=== PATIENT | female | born 1990 ===

== ENCOUNTER 2018-01-29 09:48 | Emergency (ER) | payer OTHER ==
[2018-01-29 10:03] VITALS: BMI 30.2
[2018-01-29] MEDS ORDERED: Sodium Chloride 0.9% 1,000 ML IV STA (11:03)
[2018-01-29] MEDS ORDERED: Famotidine 20mg/50ml Premix IVPB STA (11:03)
--- NOTE | 2018-01-29 11:16 | ED PDOC ---
HPI: Abdomen Time Seen by Provider: 01/29/18 10:44 Chief Complaint (Nursing): Abdominal Pain Chief Complaint (Provider): Abdominal Pain History Per: Patient, Physical Therapist ([id number]) History/Exam Limitations: no limitations Onset/Duration Of Symptoms: Days (x3) Outside of [place] travel?: No Current Symptoms Are (Timing): Still Present Pain Scale Rating Of: 8 Location Of Pain/Discomfort: Suprapubic (mid lower abdomen and shoots to both sides) Associated Symptoms: denies: Fever, Chills, Nausea, Vomiting, Diarrhea Additional Complaint(s): 27 year old female, with a past medical history of UTI, presented to the ED for evaluation of suprapubic pain with onset of 3 days. Patient reports the pain has been worsening this morning and is unrelieved by tylenol which he took at 03 :00. Pain was described as intermittent and pulsating and is 8/10 when it comes. Patient indicates pain begins in the mid lower abd and shoots to both sides (L>R). Of note, patient was diagnosed with ovarian cyst last year and is unsure if that is contributing to her symptoms. Patient states her current symptoms are not consistent with her UTIs in the past. She denies chills, nausea, vomiting, diarrhea, recent travel, cough, SOB, urinary symptoms, and flank pain. Patient's LMP was 01/15/18. PMD: [facility] Past Medical History Reviewed: Historical Data, Nursing Documentation, Vital Signs Vital Signs: Last Vital Signs Temp 98.3 F 01/29/18 14:59 Pulse 77 01/29/18 14:59 Resp 16 01/29/18 14:59 BP 123/74 01/29/18 14:59 Pulse Ox 99 01/29/18 15:00 - Medical History PMH: Mitral Valve Prolapse (surgery in 2014) - Surgical History Other surgeries: Valve replacement - Family History Family History: States: Unknown Family Hx - Social History Current smoker - smoking cessation education provided: No Alcohol: Occasional Drugs: Denies - Home Medications Home Medications: Ambulatory Orders Medication Instructions Recorded Naproxen 500 mg PO BID #20 tab 01/29/18 - Allergies Allergies/Adverse Reactions: Allergies Allergy/AdvReac Type Severity Reaction Status Date / Time No Known Allergies Allergy Verified 01/29/18 10:53 Review of Systems ROS Statement: Except As Marked, All Systems Reviewed And Found Negative Constitutional: Negative for: Fever, Chills Respiratory: Negative for: Shortness of Breath Gastrointestinal: Positive for: Abdominal Pain (suprapubic pain). Negative for : Nausea, Vomiting, Diarrhea Genitourinary Female: Negative for: Dysuria, Hematuria Physical Exam - Reviewed Nursing Documentation Reviewed: Yes Vital Signs Reviewed: Yes - Physical Exam Comments: GENERAL APPEARANCE: Patient is awake, alert, oriented x 3, resting comfortably, no distress. SKIN: Warm, dry; (-) cyanosis. EYES: (-) conjunctival pallor, (-) scleral icterus. ENMT: Mucous membranes [ ] moist. NECK: (-) tenderness, (-) stiffness, (-) lymphadenopathy. CHEST AND RESPIRATORY: (-) rales, (-) rhonchi, (-) wheezes; breath sounds equal bilaterally. HEART AND CARDIOVASCULAR: (-) irregularity; (-) murmur, (-) gallop. ABDOMEN AND GI: (-) distention. Bowel sounds active; (+) tenderness in RUQ, LUQ, suprapubic. (-) guarding, (-) rebound, (-) palpable masses, (-) CVA tenderness. EXTREMITIES: (-) deformity, (-) edema, (+) distal pulses. NEURO AND PSYCH: Mental status as above; (-) focal findings. - Laboratory Results Result Diagrams: 01/29/18 11:40 01/29/18 11:40 Urine POC: Negative Urine dip results: Positive for: Leukocyte Esterase (small), Blood (trace). Negative for: Nitrate, Ketones, Glucose, Bilirubin, Protein - ECG O2 Sat by Pulse Oximetry: 99 (RA) Pulse Ox Interpretation: Normal Medical Decision Making Medical Decision Making: Initial Impression: abdominal pain Initial Plan: CMP Lipase ED urine CBC Sodium chloride 1000mL IV Famotidine 20mg IV Toradol 30mg IV Urine culture Urinalysis US transvaginal 12:25 Labs reviewed and grossly unremarkable. Urine with small leukocytes. Patient advised culture sent. Patient with persistent pain on re-evaluation. Transvaginal U/S ordered to r/o ovarian pathology. 1320 Patient returned from U/S without incident. Patient reports improvement of presenting symptoms. Awaiting U/S report. 1445 HISTORY: h/o ovarian cysts, lower abdominal pain COMPARISON: None available. TECHNIQUE: Transvaginal pelvic ultrasound was performed. FINDINGS: UTERUS: Measures 7.2 x 3.4 x 4.0 cm. Anteverted, normal in size and appearance. No fibroid or other mass lesion seen. ENDOMETRIUM: Measures 2.0 mm in diameter. There is a tiny echogenic focus in the anterior inferior endometrium which may represent non shadowing calcification. Otherwise the central endometrial echo complex is grossly normal in appearance. CERVIX: No cervical abnormality identified. RIGHT OVARY: Measures 1.9 x 1.7 x 1.6 cm. No solid mass. Normal flow. LEFT OVARY: Enlarged and measures 5.0 x 4.3 x 4.8 cm. No solid mass. Normal flow. There is a 4.5 x 4.1 x 4.1 cm complicated septated cyst. FREE FLUID: No significant free fluid noted. OTHER FINDINGS: None. IMPRESSION: 0.5 x 4.1 x 4.1 cm complicated septated cyst in the left ovary. No evidence for torsion. Follow-up ultrasound in 3-6 month interval is recommended to assess stability/ resolution. On re-evaluation, patient reports improvement of symptoms and denies any abdominal pain at present. On exam, patient remains AAOx3, in no acute distress. Lungs clear to auscultation, cardiac RRR, abdomen soft, non-tender, repeat neuro exam shows no focal findings. VSS, stable for discharge. Lab/Diagnostic results d/w the patient in great detail. Diagnosis of ovarian cyst, abdominal pain d/w the patient. Based on history, exam and diagnostic results, plan will be for outpatient follow up. Patient instructed to follow-up with pmd / referral provided / the clinic in 1- 2 days without fail. Advised to take medication as prescribed. Return to the emergency room at any time for any new or worsening symptoms. Patient states she fully agrees with and understands discharge instructions. States that she agrees with the plan and disposition. Verbalized and repeated discharge instructions and plan. I have given the patient opportunity to ask any additional questions. - Scribe Attestation: Documented by Jigar Villarreal acting as a scribe for Marcela ENGLISH. Provider Scribe Attestation: All medical record entries made by the Scribe were at my direction and personally dictated by me. I have reviewed the chart and agree that the record accurately reflects my personal performance of the history, physical exam, medical decision making, and the department course for this patient. I have also personally directed, reviewed, and agree with the discharge instructions and disposition. Disposition - Clinical Impression Clinical Impression: Ovarian cyst, Abdominal pain - Patient ED Disposition Is Patient to be Admitted: No Counseled Patient/Family Regarding: Studies Performed, Diagnosis, Need For Followup, Rx Given - Disposition [facility]errals: 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 RETURN TO ED WITH ANY NEW OR WORSENING SYMPTOMS. Prescriptions: Naproxen 500 mg PO BID #20 tab Instructions: Ovarian Cysts, Acute Abdomen (Belly Pain), Adult (DC) Forms: [employer] (Welsh) Print Language: OCCITAN - POA Present On Arrival: None Results - Lab Results Lab Results: 01/29/18 01/29/18 01/29/18 11:40 11:40 11:40 WBC 4.1 L RBC 4.47 Hgb 13.5 Hct 39.7 MCV 88.9 MCH 30.3 MCHC 34.1 RDW 13.0 Plt Count 146 MPV 10.6 Neut % (Auto) 45.2 L Lymph % (Auto) 39.2 Menard % (Auto) 10.1 H Eos % (Auto) 4.5 H Baso % (Auto) 1.0 Neut # (Auto) 1.9 Lymph # (Auto) 1.6 Menard # (Auto) 0.4 Eos # (Auto) 0.2 Baso # (Auto) 0.0 Sodium 142 Potassium 4.3 Chloride 105 Carbon Dioxide 22 Anion Gap 19 BUN 13 Creatinine 0.6 L Est GFR ( Amer) > 60 Est GFR (Non-Af Amer) > 60 Random Glucose 74 Calcium 9.3 Total Bilirubin 0.4 AST 24 ALT 27 Alkaline Phosphatase 38 Total Protein 7.9 Albumin 4.2 Globulin 3.8 Albumin/Globulin Ratio 1.1 Lipase 100 Urine Color Yellow Urine Clarity Clear Urine pH 6.0 Ur Specific Thomson 1.010 Urine Protein Negative Urine Glucose (UA) Neg Urine Ketones Negative Urine Blood Small Urine Nitrate Negative Urine Bilirubin Negative Urine Urobilinogen 0.2-1.0 Ur Leukocyte Esterase Small Urine RBC (Auto) 2 Urine Microscopic WBC 2 Ur Squamous Epith Cells 2
[2018-01-29] MEDS ORDERED: Famotidine 20mg/50ml 20 MG/50 ML BAG IVPB ONE (11:33)
[2018-01-29 11:49] LABS: EOS # 0.2 K/uL (0.0-0.7); EOS % 4.5 % (0.0-4.0); HEMOGLOBIN 13.5 g/dL (12.0-16.0); LYMPH # 1.6 K/uL (1.0-4.3); LYMPH % 39.2 % (20.0-40.0); MEAN CELL VOLUME 88.9 fl (81.0-99.0); MEAN CORPUSCULAR HEMOGLOBIN 30.3 pg (27.0-31.0); MEAN CORPUSCULAR HGB CONC 34.1 g/dL (33.0-37.0); MEAN PLATELET VOLUME 10.6 fl (7.2-11.7); MONO # 0.4 K/uL (0.0-0.8); MONO % 10.1 % (0.0-10.0); NEUT # 1.9 K/uL (1.8-7.0); NEUT % 45.2 % (50.0-75.0); NRBC % 0.1 % (0.0-0.0); RBC 4.47 Mil/uL (3.80-5.20); WHITE BLOOD COUNT 4.1 K/uL (4.8-10.8)
[2018-01-29 12:04] LABS: SQUAMOUS EPITHIAL 2 /hpf (0-5); URINE BILIRUBIN NEGATIVE (NEGATIVE); URINE BLOOD SMALL (NEGATIVE); URINE CLARITY CLEAR (Clear); URINE COLOR YELLOW (YELLOW); URINE GLUCOSE (UA) NEG (Normal); URINE LEUKOCYTE ESTERASE SMALL Leu/uL (Negative); URINE PROTEIN NEGATIVE (NEGATIVE); URINE UROBILINOGEN 0.2-1.0 mg/dL (0.2-1.0)
[2018-01-29 12:09] LABS: ALB/GLOB RATIO 1.1 (1.0-2.1); ALBUMIN 4.2 g/dL (3.5-5.0); ALT/SGPT 27 U/L (9-52); AST/SGOT 24 U/L (14-36); BLOOD UREA NITROGEN 13 mg/dl (7-17); CALCIUM 9.3 mg/dL (8.4-10.2); GFR AFRICAN-AMERICAN > 60; GFR NON-AFRICAN AMERICAN > 60; LIPASE 100 U/L (23-300)
--- NOTE | 2018-01-29 14:27 | US ---
HISTORY: h/o ovarian cysts, lower abdominal pain COMPARISON: None available. TECHNIQUE: Transvaginal pelvic ultrasound was performed. FINDINGS: UTERUS: Measures 7.2 x 3.4 x 4.0 cm. Anteverted, normal in size and appearance. No fibroid or other mass lesion seen. ENDOMETRIUM: Measures 2.0 mm in diameter. There is a tiny echogenic focus in the anterior inferior endometrium which may represent non shadowing calcification. Otherwise the central endometrial echo complex is grossly normal in appearance. CERVIX: No cervical abnormality identified. RIGHT OVARY: Measures 1.9 x 1.7 x 1.6 cm. No solid mass. Normal flow. LEFT OVARY: Enlarged and measures 5.0 x 4.3 x 4.8 cm. No solid mass. Normal flow. There is a 4.5 x 4.1 x 4.1 cm complicated septated cyst. FREE FLUID: No significant free fluid noted. OTHER FINDINGS: None. IMPRESSION: 0.5 x 4.1 x 4.1 cm complicated septated cyst in the left ovary. No evidence for torsion. Follow-up ultrasound in 3-6 month interval is recommended to assess stability/ resolution.
[2018-01-29 15:00] VITALS: BP 123/74; PULSE 77; RESP 16; TEMP 98.3; O2SAT 99
== END 2018-01-29 14:59 | disposition home or self-care (01) ==
LOC: H.ER 09:48
DX: N83.209 Unspecified ovarian cyst, unspecified side (principal); R10.2 Pelvic and perineal pain; I34.1 Nonrheumatic mitral (valve) prolapse; Z95.2 Presence of prosthetic heart valve
CPT/HCPCS: 76830; 80053; 81003; 81025; 83690; 85025; 87086; 96374; 99284; J1885; J7030